=== PATIENT | female | born 1990 | race American Indian/Alaskan Native ===

== ENCOUNTER 2020-03-10 12:32 | Emergency (ER) | payer SELFPAY ==
[2020-03-10 12:39] VITALS: BP 112/42
--- NOTE | 2020-03-10 13:33 | Emergency Department Report ---
ED Rash HPI - HPI Chief Complaint: Allergic Reaction Stated Complaint: ALLERGIC REACTION Location: Upper Extremities, Lower Extremities Suspected Cause: Insect Rash Symptoms: Yes Itching, No Facial Swelling, No Tongue/Oral Swelling, No Breathing Difficulties, No Choking Sensation, No Blistering, No Fever, No Lightheaded, No Malaise, No Myalgias Severity: mild Other History: 30-year-old -[place] female with past medical history of psoriasis presents emerged department complaining of a 2 to 3-week history of a progressively worsening rash to the arms torso of a pruritic nature of an unknown etiology. No fevers, chills, sweats states that her friends taken at her house and woke up with some bites on her foot and thinks she may have come in contact with mites but has not seen the same bites on her body or nor has anyone else. ED Review of Systems ROS: Stated complaint: ALLERGIC REACTION Other details as noted in HPI Comment: All other systems reviewed and negative ED Past Medical Hx - Past Medical History Previous Medical History?: No - Surgical History Past Surgical History?: No - Social History Smoking Status: Never Smoker Substance Use Type: Marijuana - Medications Home Medications: Home Medications Medication Instructions Recorded Confirmed Last Taken Type Mometasone Furoate [Elocon] 1 applicatio TP QDAY #45 cream..g. 03/10/20 Unknown Rx hydrOXYzine HCL [Atarax] 25 mg PO Q6HR PRN #20 tablet 03/10/20 Unknown Rx predniSONE [Deltasone] 20 mg PO BID #10 tablet 03/10/20 Unknown Rx Rash Exam - Exam General: Vital signs noted. No distress. Alert and acting appropriately. HEENT: No Periorbital Edema, No Conjuctival Injection, No Chemosis, No Perioral Edema, No Tongue Edema, No Uvular Edema, No Compromised Airway, No Drooling Lungs: Yes Good Air Exchange (Normal Breath Sounds), No Wheezes, No Ronchi, No Stridor, No Cough, No Labored Respirations, No Retractions, No Use of Accessory Muscles, No Other Abnormal Lung Sounds Heart: Yes Regular, No Murmur Skin: Yes Other (Hyperpigmented macular rash with slightly raised and raised edges and scaliness scattered to various regions of the body including arms small area on the leg buttocks waist and left flank area) Other: Positive: Abdomen Normal, Neurologic Normal, Musculoskeletal Normal ED Course Vital Signs 03/10/20 12:34 Temperature 98.1 F Pulse Rate 85 Respiratory 16 Rate Blood Pressure 112/42 [Right] O2 Sat by Pulse 96 Oximetry Critical care attestation.: If time is entered above; I have spent that time in minutes in the direct care of this critically ill patient, excluding procedure time. ED Disposition Clinical Impression: Rash and other nonspecific skin eruption Disposition: DC- TO HOME OR SELFCARE Is pt being admited?: No Does the pt Need Aspirin: No Condition: Stable Instructions: Rash, Adult, Pityriasis Rosea Prescriptions: hydrOXYzine HCL [Atarax] 25 mg PO Q6HR PRN #20 tablet PRN Reason: Itching predniSONE [Deltasone] 20 mg PO BID #10 tablet Mometasone Furoate [Elocon] 1 applicatio TP QDAY #45 cream..g. Referrals: [facility] [Provider Group] - 3-5 Days
== END 2020-03-10 13:38 | disposition home or self-care (01) ==
LOC: ED 12:32
DX: R21 Rash and other nonspecific skin eruption (principal)
CPT/HCPCS: 99282